=== PATIENT | female | born 1985 | race Caucasian/White ===

== ENCOUNTER → 2024-09-23 13:09 | Outpatient (CLI) | payer OTHER, SELFPAY ==
--- NOTE | 2024-09-23 13:13 | DI.MRI.S_ITS ---
PROCEDURE: MR FOOT RT WO CON INDICATIONS: sesamoiditis rt foot,stress fx phalanx rt foot toe TECHNIQUE: Multiphasic, multisequence MRI of the forefoot was performed, without intravenous contrast administration. COMPARISON: [facility], CR, XR FOOT 3 VIEWS WEIGHT BEARING RIGHT, 07/03/2024, 14:57. FINDINGS: Image quality: Excellent. Bones and joints: The tibial and the fibula hallucal sesamoid are unremarkable. No sesamoiditis. Moderate effusion within the 1st metatarsophalangeal joint. The plantar plate at the 1st metatarsophalangeal joint is not visualized, likely fully torn. Status post screw fixation of the 2nd metatarsal head. The screw at the 2nd metatarsal neck is not flush with the dorsal cortex, which may be postprocedural versus slight backing out. (04:17). Moderate degenerative change of 1st tarsometatarsal joint, with mild subchondral cystic changes and marrow edema in the medial cuneiform. Mild degenerative changes of the calcaneocuboid articulation with mild subchondral marrow edema in the calcaneus. No acute fracture. No stress changes. Soft tissues: The visualized plantar fascia is unremarkable. Muscles are normal in signal. The flexor, and the extensor tendons are unremarkable. The Lisfranc ligament is intact. Mild second and 3rd intermetatarsal bursitis. IMPRESSION: 1. No sesamoiditis or stress fracture. 2. Moderate effusion within the 1st metatarsophalangeal joint with findings concerning for tear of the plantar plate. 3. Status post screw fixation of the 2nd metatarsal head . The screw at the 2nd metatarsal neck is not flush with the dorsal cortex, which may be postprocedural versus screw backing out. Recommend further evaluation with CT. 4. Moderate degenerative change of the 1st tarsometatarsal joint. Mild degenerative changes of the calcaneocuboid articulation. Dictated by: Fadumo Angel M.D. on 09/23/2024 at 15:06 Approved by: Fadumo Angel M.D. on 09/23/2024 at 15:16
== END ==
LOC: MRI 13:13
PROVIDERS: Referring Provider Podiatrist; Visit Provider Podiatrist
DX: M25.871 Other specified joint disorders, right ankle and foot (principal); M84.37 Stress fracture, ankle, foot and toes; Q66.72 Congenital pes cavus, left foot; M72.2 Plantar fascial fibromatosis; M25.474 Effusion, right foot; M24.573 Contracture, unspecified ankle; M77.50 Other enthesopathy of unspecified foot and ankle
CPT/HCPCS: 73718

== ENCOUNTER 2025-10-06 17:34 | Emergency (ER) | payer OTHER, SELFPAY ==
--- OUTSIDE RECORDS SUMMARY | 2025-10-06 17:42 | XMS_ITS | Encounter Summary ---
Author Organization [facility] Address [address] [place] [address] Care Team Providers Care Chicken Hanger Name Role Phone Unavailable Primary Care Provider Unavailabl e Reason for Referral * Outpatient Service (Routine) - Canceled Specialty Diagnoses / Procedures Referred By Deborah t Referred To Contact Obstetrics/Gynecology Diagnoses Encounter for contraceptive management, unspecified type Procedures REF HEAVY MACHINERY OPERATOR OFFICE VISIT E&M EST PT, MODERATE MDM, 30-39 MINS Mervat Isaac ARNP [facility] [address] [place] [address] Phone: tel: fax: [facility] [place] [address] Referral ID Status Reason Start Date Expiration Date Visits Requested Visits Authorized [id number] Canceled Evaluate and Treat-Surgery if Indicated 02/25/2021 03/28/2021 6 0 Encounter Details Date Type Department Care Team (Latest Contact Info) Description 03/01/2021 Community Orders Non [facility] Provider Mervat Isaac ARNP [facility] [address] [place] [address] Encounter for contraceptive management, unspecified type (Primary Dx) Social History Tobacco Use Types Packs/Day Years Used Date Smoking Tobacco: Never Smokeless Tobacco: Never Alcohol Use Standard Drinks/Week Comments Yes 0 (1 standard drink = 0.6 oz pur e alcohol) soc Comments Unknown Sex and Gender Information Value Date Recorded Sex Assigned at Not on file Legal Sex Female 5:14 PM PST Gender Identity Not on file Sexual Orientation Not on file documented as of this encounter Plan of Treatment Not on file documented as of this encounter Visit Diagnoses Diagnosis Encounter for contraceptive management, unspecified type- Primary documented in this encounter
[2025-10-06 17:45] VITALS: BP 153/99; PULSE 90; RESP 18; TEMP 36.4; O2SAT 97; BMI 30.9
--- NOTE | 2025-10-06 17:51 | DI.RAD.S_ITS ---
PROCEDURE: XR HAND LT MIN 3V INDICATIONS: dragged by horse with hand in reigns 2-3 weeks ago TECHNIQUE: 3 views of the hand(s) acquired. COMPARISON: None. FINDINGS: Bones: No fractures or dislocations. Carpal bones are normally aligned. No suspicious bony lesions. Soft tissues: No suspicious soft tissue calcifications. IMPRESSION: No gross acute left hand fracture or dislocation. Dictated by: Otf Rivera M.D. on 10/06/2025 at 18:46 Approved by: Otf Rivera M.D. on 10/06/2025 at 18:47
--- NOTE | 2025-10-06 19:34 | ED_ITS ---
HPI - Trauma General Chief Complaint: Extremity Injury, Upper Stated Complaint: L hand pn, tangled in horse reins, broken? Time Seen by Provider: 10/06/25 17:52 Source: patient Mode of arrival: Ambulatory History of Present Illness HPI narrative: 39-year-old, right-hand dominant, female presents to the ED with left ring finger pain. No significant past medical history. Patient states that she was riding a horse when she was flipped over with her arms still entangled in the range. The horse continued moving dragging the patient by the arm approximately 4 ft. She stated that this happened approximately 2 months ago Injury occurred 2 months ago. She reports today when she was making the bed with her significant other, her hand got caught on the bed sheet while he was pulling it causing additional pain. Given the acute on chronic injury and pain, patient stating that she is having issues straighten her ring finger, she presented to the ER for further evaluation. Denies any weakness or paresthesias in her hands or wrists. No prior injuries or surgeries in the left upper extremities. She is not taking any medications for the pain. Related Data Allergies Allergy/AdvReac Type Severity Reaction Status Date / Time No Known Drug Allergies Allergy Verified 10/06/25 17:45 Review of Systems Review of Systems ROS Unobtainable: All systems reviewed & are unremarkable except as noted in HPI and below Patient History Social History Smoking Status: Never smoker Smoking Status: Never smoker Exam Narrative Exam Narrative: Vitals: Afebrile, hypertensive, all other vital signs normal Gen: Well developed, well nourished, no acute distressed Card: Regular, no murmurs, rubs, or gallops Pulm: No increased work of breathing, clear to auscultation bilateraly Abd: Soft nondistended, nontender to palpation Ext: No edema in bilaterally lower extremity. 2+ left radial pulse Left ring finger: -- No gross deformity. No swelling localized to the ring finger. No open wounds or visible ecchymosis. -- No tenderness over the proximal phalanx/PIP/DIP. No palpable crepitus. No warmth or erythema. -- No limitations on active and passive ROM limited by pain at finger joint. Full ROM in remaining digits of left hand. 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 -- Sensation intact to light touch in radial, median, and ulnar distributions. Capillary refill < 2 seconds. Radial and ulnar pulses intact. -- No mallet deformity, boutonni?re deformity, or swan neck deformity. --- No instability of collateral ligaments on stress testing. - Tendon function intact?patient able to flex and extend at MCP, PIP, and DIP. Neuro: A&O x 4, CN grossly intact, moving all 4 extremities spontaneous Psych: Appropriate Initial Vital Signs Initial Vital Signs: Vital Signs Temperature 97.6 F 10/06/25 17:45 Pulse Rate 90 10/06/25 17:45 Respiratory Rate 18 10/06/25 17:45 Blood Pressure 153/99 H 10/06/25 17:45 Pulse Oximetry 97 10/06/25 17:45 Oxygen Delivery Method Room Air 10/06/25 17:45 Course Orders Ordered: ED Orders 10/06/25 17:51 XR hand LT min 3V Stat Vital Signs Vital signs: Vital Signs - 8 hr 10/06/25 17:45 Temperature 97.6 F Pulse Rate 90 Respiratory Rate 18 Blood Pressure 153/99 H Pulse Oximetry 97 Oxygen Delivery Method Room Air MDM - Trauma Imaging Data Extremity x-ray #1: Radiologist's Impression: PROCEDURE: XR HAND LT MIN 3V INDICATIONS: dragged by horse with hand in reigns 2-3 weeks ago TECHNIQUE: 3 views of the hand(s) acquired. COMPARISON: None. FINDINGS: Bones: No fractures or dislocations. Carpal bones are normally aligned. No suspicious bony lesions. Soft tissues: No suspicious soft tissue calcifications. IMPRESSION: No gross acute left hand fracture or dislocation. Dictated by: Otf Rivera M.D. on 10/06/2025 at 18:46 Approved by: Otf Rivera M.D. on 10/06/2025 at 18:47 MRI - left hand: Radiologist's Impression: PROCEDURE: MR HAND LT WO CON INDICATIONS: hand injury TECHNIQUE: Noncontrast coronal T1 spin echo and T2 fast spin echo with fat saturation, axial proton density fast spin echo and T2 fast spin echo with fat saturation, sagittal T1 spin echo and STIR through the hand and fingers. COMPARISON: [facility], , XR HAND LT MIN 3V, 10/06/2025, 18:05. FINDINGS: Image quality: Excellent. Bones: The bones are normally aligned, without marrow contusions or fractures. No intra-osseous lesions. Interphalangeal joint(s): Sprain/low-grade partial-thickness tear involving radial collateral ligament of 4th PIP joint near its distal insertion. The ulnar collateral ligament is intact.. The volar plate demonstrates normal morphology. The extensor central slips appear intact on sagittal images. Metacarpophalangeal joint(s): The accessory and proper collateral ligaments appear intact, as well as the volar plate and adjacent deep transverse metacarpal ligaments. The sagittal bands of the extensor pandya appear normal. Extensor apparatus: The central slips insert normally on the middle phalangeal base. The conjoint and terminal tendons insert normally on the distal phalangeal bases. More proximal portions of the extensor tendons also appear normal. Flexor apparatus: The flexor digitorum superficialis and profundus tendons both appear thickened at the level of 4th middle phalanx and 4th PIP joint with mild surrounding edema. No full-thickness tendon rupture.. All annular and cruciform pulleys appear intact, without adjacent soft tissue edema. Soft tissues: Visualized muscles demonstrate normal bulk and internal signal. No intramuscular masses identified. No ganglion cysts. IMPRESSION: 1. No marrow edema. No 4th finger fracture or dislocation. No suspicious bony lesions. 2. Tendinosis and low-grade intrasubstance partial-thickness tear involving flexor tendons of the 4th finger at the level of 4th middle phalanx and 4th PIP joint. No full-thickness tendon rupture. The 4th finger pulleys are grossly intact. 3. Extensor tendons of the 4th finger are intact. 4. Sprain/low-grade partial-thickness tear involving radial collateral ligament of 4th finger near its distal insertion. No full-thickness ligament rupture. Dictated by: Otf Rivera M.D. on 10/06/2025 at 21:48 Approved by: Otf Rivera M.D. on 10/06/2025 at 21:54 [facility] Narrative Medical decision making narrative: Patient is a 39-year-old female who had recent trauma to her left ring finger with acute injury tonight. -- EMR Review: Reviewed and noncontributory. -- Differential diagnosis: Fractures, dislocation, tendon injury, tendon tear, sprain, muscle sprain/strain, other. -- Labs: Not indicated. -- Imaging: X-ray without any bony acute fractures. MRI with low grade partial-thickness tear of the flexor tendons of the 4th finger, no full- thickness tendon rupture. There is another sprain/low-grade partial-thickness tear involving the radial collateral ligament. -- EKG: Not indicated. -- Consults: I spoke with the MRI attending who states that these partial thickness tears involves less than 50% of the ligament. ED summary: The patient?s symptoms and mechanism of injury are consistent with soft tissue trauma to the ring finger. Imaging confirms partial thickness tendon and ligament injury without fracture or complete rupture. Given preserved function, intact neurovascular status, and absence of high risk features, the patient is appropriate for conservative management, including immobilization, analgesia, and outpatient follow up with hand surgery or orthopedics. Return precautions were reviewed, including worsening pain, loss of function, numbness, or signs of infection. Unfortunately, the patient left the Emergency Department prior to my awareness, and I was unable to communicate the MRI results or provide recommendations for follow up and management. Discharge Plan Departure Patient Disposition: Elopement Clinical Impression: Finger pain, left, Sprain of radial collateral ligament of distal inter phalangeal (DIP) joint of finger Injury of flexor tendon of left hand Qualifiers: Encounter type: initial encounter Qualified Code(s): S66.802A - Unspecified injury of other specified muscles, fascia and tendons at wrist and hand level, left hand, initial encounter
--- NOTE | 2025-10-06 19:48 | DI.MRI.S_ITS ---
PROCEDURE: MR HAND LT WO CON INDICATIONS: hand injury TECHNIQUE: Noncontrast coronal T1 spin echo and T2 fast spin echo with fat saturation, axial proton density fast spin echo and T2 fast spin echo with fat saturation, sagittal T1 spin echo and STIR through the hand and fingers. COMPARISON: [facility], CR, XR HAND LT MIN 3V, 10/06/2025, 18:05. FINDINGS: Image quality: Excellent. Bones: The bones are normally aligned, without marrow contusions or fractures. No intra-osseous lesions. Interphalangeal joint(s): Sprain/low-grade partial-thickness tear involving radial collateral ligament of 4th PIP joint near its distal insertion. The ulnar collateral ligament is intact.. The volar plate demonstrates normal morphology. The extensor central slips appear intact on sagittal images. Metacarpophalangeal joint(s): The accessory and proper collateral ligaments appear intact, as well as the volar plate and adjacent deep transverse metacarpal ligaments. The sagittal bands of the extensor pandya appear normal. Extensor apparatus: The central slips insert normally on the middle phalangeal base. The conjoint and terminal tendons insert normally on the distal phalangeal bases. More proximal portions of the extensor tendons also appear normal. Flexor apparatus: The flexor digitorum superficialis and profundus tendons both appear thickened at the level of 4th middle phalanx and 4th PIP joint with mild surrounding edema. No full-thickness tendon rupture.. All annular and cruciform pulleys appear intact, without adjacent soft tissue edema. Soft tissues: Visualized muscles demonstrate normal bulk and internal signal. No intramuscular masses identified. No ganglion cysts. IMPRESSION: 1. No marrow edema. No 4th finger fracture or dislocation. No suspicious bony lesions. 2. Tendinosis and low-grade intrasubstance partial-thickness tear involving flexor tendons of the 4th finger at the level of 4th middle phalanx and 4th PIP joint. No full-thickness tendon rupture. The 4th finger pulleys are grossly intact. 3. Extensor tendons of the 4th finger are intact. 4. Sprain/low-grade partial-thickness tear involving radial collateral ligament of 4th finger near its distal insertion. No full-thickness ligament rupture. Dictated by: Otf Rivera M.D. on 10/06/2025 at 21:48 Approved by: Otf Rivera M.D. on 10/06/2025 at 21:54
== END 2025-10-06 22:45 | disposition left against medical advice (07) ==
PROVIDERS: Emergency Provider Student in an Organized Health Care Education/Training Program
DX: S66.802A Unspecified injury of other specified muscles, fascia and tendons at wrist and hand level, left hand, initial encounter (principal); M79.645 Pain in left finger(s); Z53.29 Procedure and treatment not carried out because of patient's decision for other reasons
CPT/HCPCS: 73130; 73218; 99281; 99283